=== PATIENT | male | born 1960 | race African-American/Black ===

== ENCOUNTER 2020-11-14 12:35 | Emergency (ER) | payer OTHER ==
[~2020-11-14] VITALS: Ht 182.9 cm; Wt 99.8 kg
[2020-11-14 12:54] VITALS: Ht 182.9 cm; Wt 99.8 kg
[2020-11-14] MEDS ORDERED: NAPROXEN375 MG PO (14:08)
[2020-11-14] MEDS ORDERED: ACETAMINOPHEN-H1 TA1 PO (14:08)
[2020-11-14 14:26] VITALS: BP 171/117
== END 2020-11-14 14:26 | disposition home or self-care (01) ==
LOC: ED 12:35
DX: M54.5 Low back pain (principal); M25.562 Pain in left knee; I10 Essential (primary) hypertension